=== PATIENT | female | born 1980 | race Caucasian/White ===

== ENCOUNTER 2016-09-14 06:00 | Outpatient (CLI) | payer OTHER | END 2016-09-14 23:00 | LOC: LAB SRH 06:00 | DX: Z00.00 Encounter for general adult medical examination without abnormal findings (principal); R89.9 Unspecified abnormal finding in specimens from other organs, systems and tissues | CPT/HCPCS: 90100; 91282; 91504; 92180; 92690; 93140; 95059 ==